=== PATIENT | male | born 1990 | race Caucasian/White ===

== ENCOUNTER → 2022-04-29 13:52 | Outpatient (CLI) | payer OTHER, SELFPAY ==
[2022-04-29 16:01] LABS: Cholesterol 153 mg/dL (140-199); HDL Cholesterol 38 mg/dL (40-60); LDL Cholesterol Calculated 97 mg/dL (<100); Triglycerides 92 mg/dL (35-150)
== END ==
PROVIDERS: PCP Internal Medicine; Referring Provider Internal Medicine; Visit Provider Internal Medicine
DX: Z13.6 Encounter for screening for cardiovascular disorders (principal)
CPT/HCPCS: 36415; 80061